=== PATIENT | female | born 1965 | race Caucasian/White ===

== ENCOUNTER → 2018-12-24 | Outpatient (CLI) | payer BC, SELFPAY ==
--- NOTE | 2018-12-24 15:55 | BI_ITS ---
MAMMOGRAPHY - BILATERAL SCREENING REASON FOR EXAM: Female, 53 years old. Routine annual screening examination. PERTINENT HISTORY: Grandmother with breast cancer. TECHNIQUE: Digital bilateral breast juan josé (3D mammographic acquisition) in the CC and MLO projections. 2-D mediolateral oblique (MLO) and craniocaudad (CC) views of both breasts were obtained. CAD: Full Field Digital Mammography with Computer Added Detection was performed. COMPARISON: Comparison is made with prior study of September 07, 2015 and March 27, 2013. FINDINGS: Breast Composition: The breasts are heterogeneously dense, which may obscure small masses. There are no dominant masses or suspicious calcifications. Stable appearance of the fat-containing right axillary lymph node. No other significant abnormalities are identified. There has been no significant change since the prior study. BI/SCREENING MAMM (CAD), BILAT IMPRESSION: Stable bilateral screening mammogram. Yearly follow-up mammogram recommended. (A) ASSESSMENT CATEGORY: BIRADS Category 2: Benign. A letter regarding these results will be sent to the patient by the facility within 30 days. Approximately 10% of breast cancers are not detected by mammography. A normal mammogram should not delay biopsy of a clinically suspicious abnormality. [id number] Electronically Signed: Sabas Rachel, at 9:14 EDT , Service support ,
== END | disposition home or self-care (01) ==
LOC: OPBI 15:52
PROVIDERS: Referring Provider Obstetrics & Gynecology; Visit Provider Obstetrics & Gynecology
DX: Z12.31 Encounter for screening mammogram for malignant neoplasm of breast (principal)
CPT/HCPCS: 77063; 77067

== ENCOUNTER → 2019-03-29 | Outpatient (CLI) | payer BC, SELFPAY ==
[2019-03-29 10:07] LABS: Absolute Neutrophil Count 2.7 X10^3/uL (2.0-7.7); Basophil# 0.03 X10^3/uL; Basophil% 0.7 % (0-1); Eosinophil# 0.08 X10^3/uL; Eosinophils% 1.8 % (0-5); Hematocrit 40.1 % (37-47); Lymphocyte % 27.3 % (19-41); Mean Corp Hgb Conc 32.4 g/dL (32-36); Mean Corpuscular Hgb 29.7 pg (27.0-32.0); Mean Corpuscular Volume 91.6 fL (81-99); Mean Platelet Vol. 11.6 fl (6.2-12.0); Monocyte% 9.1 % (0-10); NRBC Flagged by Analyzer 0 % (0-5); Neutrophil # 2.68 X10^3/uL (2.7-7.7); Neutrophil % 60.9 % (47-70); Platelet Count 160 K/mm3 (150-450); RBC Distribution Width CV 12.5 % (11.6-14.6); RBC Distribution Width SD 42.2 fl (35.1-43.9); Red Blood Count 4.38 M/mm3 (4.2-5.4); White Blood Count 4.4 K/mm3 (4.4-11.0)
[2019-03-29 10:36] LABS: ALB/GLOB Ratio 0.9 RATIO (0.9-2.4); AST(SGOT) 14 U/L (15-37); Alanine Aminotransfer ALT/SGPT 21 U/L (13-56); Albumin, Serum 3.5 g/dL (3.2-5.0); Alkaline Phosphatase 58 U/L (45-117); Anion Gap 5 (5-15); BUN 15 mg/dL (7-18); BUN/Creat Ratio 17.4 RATIO (10-20); Calcium,Total 8.7 mg/dL (8.5-10.1); Chloride 109 mmol/L (98-107); Cholesterol 219 mg/dL (200); Creatinine, Serum 0.86 mg/dL (0.55-1.02); EST Glomerular Filtration Rate 73 mL/min (>60); Est Glom Filt Rate - Afr Amer 88 mL/min (>60); Globulin 3.7 g/dL (2.2-4.2); Glucose 89 mg/dL (74-106); High Density Lipoprotein 51 mg/dL; Potassium 4.1 mmol/L (3.5-5.1); Protein, Total 7.2 g/dL (6.4-8.2); Sodium Level 144 mmol/L (136-145); Triglycerides 76 mg/dL; Very Low Density Lipoprotein 15 mg/dL (5-40)
== END | disposition home or self-care (01) ==
LOC: LAB 09:18
PROVIDERS: Family Provider Family Medicine; PCP Family Medicine; Referring Provider Family Medicine; Visit Provider Family Medicine
DX: Z00.00 Encounter for general adult medical examination without abnormal findings (principal)
CPT/HCPCS: 36415; 80053; 80061; 85025

== ENCOUNTER 2019-05-19 06:15 | Day surgery (SDC) | payer BC, SELFPAY ==
[2019-05-19] VITALS (7 sets, daily range): BP systolic 103–143; BP diastolic 63–71; PULSE 56–64; RESP 16; TEMP 36.6–36.9; O2SAT 98–100; BMI 24.7
[2019-05-19] MEDS: Lactated Ringers 1,000 ML 100 ML IV (07:00)
--- NOTE | 2019-05-19 07:10 | H&P.OPEN ---
History of Present Illness Date of Admission: 05/19/19 The patient is a 54 year old F for screening colonoscopy. She has never had a colonoscopy. Past Medical/Surgical History - Planned Operation Planned Operative Procedure/s: COLONOSCOPY Date of Operative Procedure: 05/19/19 Permit Signed: Yes S.O.S: No Is This Patient Having a Total Joint: No - Previous Hospitalizations/Surgeries HX Hospitalizations: No HX of Surgeries: X3. TUBAL Any Problems With Anesthesia: Yes - NAUSEA You/Your Family Experience Fever (Hyperthermia) With Anes: No Cholinesterase deficiency: No - Cardiovascular Hx Chest Pain within Last 2 months: No Hx of Irregular Heartbeat and/or Afib: No Hx Heart Attack: No Hx Congestive Heart Failure: No Hx Rheumatic Fever: No Hx Hypertension: No Hx Internal Defibrillator: No Hx Pacemaker: No Hx Cardiac Catheterization: No Hx Cardiac Surgery/Stents/Etc.: No Hx Stress Test: No HX Edema: No Hx Pain in Legs when Walking/Leg Cramps: No - Respiratory Chronic Cough: No HX of Shortness of Breath: No Hoarseness: No Hx Chronic Obstructive Pulmonary Disease (COPD): No Hx Asthma: No Hx Emphysema: No Hx Sleep Apnea: No Hx Oxygen Use at Home: No Hx Respiratory Tract Infection/Cold (presently): No Do You Snore Loudly (louder than talking or can be heard): No Do You Often Feel Tired/ Fatigued/ Sleepy Dring Daytime?: No Has Anyone Observed You Stop Breathing During Sleep?: No Result (for STOP score): Negative Hx Smoking: No Smoking Status: Never smoker - Gastrointestinal Hx Gastroesophageal Reflux: No Hx Gastrointestinal Disorders: No Hx Gastrointestinal Bleed: No Hx Ulcer: No Hx Hiatal Hernia: No Difficulty Chewing/Swallowing: No Recent Onset of Swallowing Problems: No Special diet followed at home: No Hx Unplanned Weight Loss of 20#: No HX Unplanned Weight Gain of 20#: No - Neurological Hx Seizures: No HX Syncope/Blackout Spells/Unconsciousness: No Hx CVA/Stroke: No Hx Transient Ischemic Attacks (TIA): No Hx Multiple Sclerosis: No Hx Parkinson's Disease: No Hx Head/Neck Injury: No Hx Headaches: No Hx Back Injury/Pain: No Recent Onset of Speech Difficulty: No Restless Legs: No Does patient have nerve stimulator: No - Blood Disorder Hx Leukemia: No Bleeding Tendencies: No Hx Deep Vein Thrombosis: No Hx High Cholesterol: No Blood Transmitted Disease: No Hx Hepatitis: No Hx Cirrhosis: No Hx Anemia: No Hx Blood Disorders: No - Reproduction : No Is Patient Lactating: No Hx Hysterectomy: No Hx Tubal Ligation: Yes Are You Post Menopause: No - Genitourinary Hx Renal Disease: No - Musculoskeletal Hx Arthritis: No Hx Rheumatoid Arthritis: No Hx Gout: No Recent Onset of an Orthopedic Problem: No - Endocrine Hx Diabetes: No Thyroid Disease: No Hx Steroid Therapy: No - Psycho/Social Hx Substance Use: No Hx Alcohol Use: No Hx Anxiety: No Hx Depression: No Mental Illness: No Hx Dementia: No - Miscellaneous Hx Cancer: No Recent Exposure to Contagious Disease: No Active MRSA: No Hx of C-Diff: No Any Loose Teeth: No Allergies No Known Allergies Allergy (Verified 05/14/19 11:34) - Discharge Is Pt Admitted From a Intermediate, or a Residential: No Who Could Help: After D/C, Where Do you Plan to Go: Return Home - Physical Exam General: Alert, Oriented x3 Lungs: Clear to auscultation Cardiovascular: Regular rate, Regular Rhythm, No murmurs Abdomen: Bowel Sounds Present, Soft, Non Tender, Non-Distended Vital Signs Temp Pulse Resp BP Pulse Ox 98.5 F 62 16 143/70 H 100 05/19/19 06:46 05/19/19 06:46 05/19/19 06:46 05/19/19 06:46 05/19/19 06:46 Oxygen Delivery Method Room Air Weight: 135 lb 2.294 oz Body Mass Index (BMI) 24.7 Assessment/Plan Plan will be to perform a colonoscopy. Surgery Risks - Colonoscopy Risks Include but are not Limited To: Risks include but are not limited to: Bleeding, perforation requiring further surgery, inability to complete colonoscopy requiring barium enema.
--- NOTE | 2019-05-19 07:40 | OP.ENDO_ITS ---
05/19/2019 Latoya Maldonado [place] [id number] [address] Re : Colonoscopy procedure for Lisa Hutson Dear Dr. Maldonado This procedure was performed on Sunday, May 19, 2019. My impressions and recommendations are as follows: Impressions : - Internal hemorrhoids. No specimens collected. - The examination was otherwise normal. Recommendations : - Discharge patient to home. - Resume previous diet. - Continue present medications. - Repeat colonoscopy in 10 years for screening purposes. - Return to primary care physician PRN. My findings are described in the full procedure note, which is enclosed. If I can be of further assistance, please feel free to contact me at Doctor phone number(s): , Fax: [phone], Work: . Sincerely, MD Andry Melendez MD 05/19/2019 7:40:15 AM This report has been signed electronically.
== END 2019-05-19 08:22 | disposition home or self-care (01) ==
LOC: EN 06:15 → AC 06:16
PROVIDERS: Family Provider Family Medicine; PCP Family Medicine; Referring Provider Family Medicine; Visit Provider Surgery
PROC: 0DJD8ZZ Inspection of Lower Intestinal Tract, Via Natural or Artificial Opening Endoscopic (ICD-10-PCS; CPT 45378; principal; 2019-05-19 07:10)
DX: Z12.11 Encounter for screening for malignant neoplasm of colon (principal); K64.8 Other hemorrhoids
CPT/HCPCS: 45378; J7120

== ENCOUNTER → 2020-05-06 | Outpatient (CLI) | payer BC, SELFPAY ==
[2019-05-19 06:46] VITALS: BMI 24.7
[2020-05-10 18:05] LABS: HPV APTIMA, High Risk Negative (Negative); HPV Reflexed? YES, CHARGE PATIENT
== END | disposition home or self-care (01) ==
PROVIDERS: PCP Family Medicine; Visit Provider Student in an Organized Health Care Education/Training Program
DX: Z12.4 Encounter for screening for malignant neoplasm of cervix (principal)
CPT/HCPCS: 87624; 88175; G0145

== ENCOUNTER → 2020-05-13 09:18 | Outpatient (CLI) | payer BC, SELFPAY ==
[2019-05-19 06:46] VITALS: BMI 24.7
--- NOTE | 2020-05-13 09:21 | US_ITS ---
STUDY: ULTRASOUND BREAST - RIGHT REASON FOR EXAM: Female, 55 years old. Pain in the right breast. TECHNIQUE: Axial and longitudinal images of the RIGHT breast were performed with a high resolution ultrasound transducer. # OF IMAGES: 56 COMPARISON: Comparison is made with prior mammogram dated 05/13/2020. FINDINGS: RIGHT Breast: The entire right breast was examined by ultrasound. There is homogeneous fibroglandular tissue. No sonographic abnormality is seen. US/Breast Limited Unilateral IMPRESSION: No sonographic abnormality is seen. ASSESSMENT CATEGORY: BIRADS Category 1: Negative. A letter regarding these results will be sent to the patient by the facility within 30 days. Electronically Signed: Sabas Rachel, at 14:07 EDT , Service support ,
--- NOTE | 2020-05-13 09:21 | BI_ITS ---
MAMMOGRAPHY - BILATERAL DIAGNOSTIC REASON FOR EXAM: Female, 55 years old. Right breast pain. PERTINENT HISTORY: Grandmother with breast cancer. TECHNIQUE: Digital bilateral breast juan josé (3D mammographic acquisition) in the CC and MLO projections. 2-D mediolateral oblique (MLO) and craniocaudad (CC) views of both breasts were obtained. CAD: Full Field Digital Mammography with Computer Added Detection was performed. COMPARISON: Comparison is made with prior examination dated 12/24/2018 and 09/16/2015. FINDINGS: Breast Composition: The breasts are heterogeneously dense, which may obscure small masses. There are no dominant masses or suspicious calcifications. Stable benign-appearing right axillary No other significant abnormalities are identified. There has been no significant change since the prior study. BI/DIAG MAMM W/CAD, BILAT IMPRESSION: Stable bilateral diagnostic mammogram. One year follow-up recommended. (A) ASSESSMENT CATEGORY: BIRADS Category 2: Benign. A letter regarding these results will be sent to the patient by the facility within 30 days. Approximately 10% of breast cancers are not detected by mammography. A normal mammogram should not delay biopsy of a clinically suspicious abnormality. Electronically Signed: Sabas Rachel, at 12:28 EDT , Service support ,
== END ==
PROVIDERS: PCP Family Medicine; Referring Provider Student in an Organized Health Care Education/Training Program; Visit Provider Student in an Organized Health Care Education/Training Program
CPT/HCPCS: 76642; 77062; 77066; G0279

== ENCOUNTER → 2021-04-09 09:09 | Outpatient (CLI) | payer OTHER, BC, SELFPAY ==
[2021-04-09 09:32] LABS: Absolute Lymphocyte Count 1.36 X10^3/uL (0.83-4.51); Absolute Neutrophil Count 2.9 X10^3/uL (2.0-7.7); Basophil# 0.03 X10^3/uL; Basophil% 0.6 % (0-1); Eosinophil# 0.09 X10^3/uL; Eosinophils% 1.9 % (0-5); Hematocrit 42.5 % (37-47); Hemoglobin 13.8 g/dL (12.0-15.0); Lymphocyte # 1.36 X10^3/ul (0.83-4.51); Lymphocyte % 28.3 % (19-41); Mean Corp Hgb Conc 32.5 g/dL (32-36); Mean Corpuscular Hgb 29.9 pg (27.0-32.0); Mean Corpuscular Volume 92.2 fL (81-99); Mean Platelet Vol. 11.4 fl (6.2-12.0); Monocyte# 0.44 X10^3/uL; Monocyte% 9.1 % (0-10); NRBC Flagged by Analyzer 0 % (0-5); Neutrophil # 2.88 X10^3/uL (2.7-7.7); Neutrophil % 59.9 % (47-70); Platelet Count 188 K/mm3 (150-450); RBC Distribution Width CV 12.1 % (11.6-14.6); RBC Distribution Width SD 40.9 fl (35.1-43.9); Red Blood Count 4.61 M/mm3 (4.2-5.4); White Blood Count 4.8 K/mm3 (4.4-11.0)
[2021-04-09 09:45] LABS: ALB/GLOB Ratio 0.9 RATIO (0.9-2.4); AST(SGOT) 19 U/L (15-37); Alanine Aminotransfer ALT/SGPT 29 U/L (13-56); Albumin, Serum 3.5 g/dL (3.2-5.0); Alkaline Phosphatase 59 U/L (45-117); Anion Gap 0 (5-15); BUN 16 mg/dL (7-18); BUN/Creat Ratio 16.9 RATIO (10-20); Calcium,Total 8.9 mg/dL (8.5-10.1); Chloride 109 mmol/L (98-107); Cholesterol 257 mg/dL (200); Creatinine, Serum 0.95 mg/dL (0.55-1.02); EST Glomerular Filtration Rate 65 mL/min (>60); Est Glom Filt Rate - Afr Amer 78 mL/min (>60); Glucose 101 mg/dL (74-106); High Density Lipoprotein 53 mg/dL; Potassium 4.1 mmol/L (3.5-5.1); Protein, Total 7.5 g/dL (6.4-8.2); Sodium Level 141 mmol/L (136-145); Triglycerides 96 mg/dL; Very Low Density Lipoprotein 19 mg/dL (5-40)
== END ==
PROVIDERS: PCP Family Medicine; Referring Provider Family Medicine; Visit Provider Family Medicine
DX: Z00.00 Encounter for general adult medical examination without abnormal findings (principal); Z78.0 Asymptomatic menopausal state
CPT/HCPCS: 36415; 80053; 80061; 85025

== ENCOUNTER → 2021-05-16 16:07 | Outpatient (CLI) | payer OTHER, BC, SELFPAY ==
--- NOTE | 2021-05-16 16:10 | BI_ITS ---
MAMMOGRAPHY - BILATERAL SCREENING REASON FOR EXAM: Female, 56 years old. Routine annual screening examination. PERTINENT HISTORY: Grandmother with breast cancer. TECHNIQUE: Digital bilateral breast pedro luis (3D mammographic acquisition) in the CC and MLO projections. 2-D mediolateral oblique (MLO) and craniocaudad (CC) views of both breasts were obtained. CAD: Full Field Digital Mammography with Computer Added Detection was performed. COMPARISON: Comparison is made with prior examination dated 05/13/2020 and 12/24/2018. FINDINGS: Breast Composition: The breasts are heterogeneously dense, which may obscure small masses. There are no dominant masses or suspicious calcifications. Stable benign-appearing bilateral axillary lymph nodes. No other significant abnormalities are identified. There has been no significant change since the prior study. BI/SCRN MAMM (CAD)W/PEDRO LUIS BILAT IMPRESSION: Stable bilateral screening mammogram. Yearly follow-up mammogram recommended. (A) ASSESSMENT CATEGORY: BIRADS Category 2: Benign. A letter regarding these results will be sent to the patient by the facility within 30 days. Approximately 10% of breast cancers are not detected by mammography. A normal mammogram should not delay biopsy of a clinically suspicious abnormality. [id number] Electronically Signed: Sabas Rachel MD at 8:35 EDT , Service support ,
== END ==
PROVIDERS: PCP Family Medicine; Referring Provider Student in an Organized Health Care Education/Training Program; Visit Provider Student in an Organized Health Care Education/Training Program
DX: Z12.31 Encounter for screening mammogram for malignant neoplasm of breast (principal)
CPT/HCPCS: 77063; 77067

== ENCOUNTER → 2022-09-06 | Outpatient (CLI) | payer BC, SELFPAY ==
--- NOTE | 2022-09-06 15:54 | BI_ITS ---
MAMMOGRAPHY - BILATERAL SCREENING REASON FOR EXAM: Female, 57 years old. Routine annual screening examination. PERTINENT HISTORY: Grandmother with breast cancer. TECHNIQUE: Digital bilateral breast pedro luis (3D mammographic acquisition) in the CC and MLO projections. 2-D mediolateral oblique (MLO) and craniocaudad (CC) views of both breasts were obtained. CAD: Full Field Digital Mammography with Computer Added Detection was performed. COMPARISON: Comparison is made with prior study 05/16/2021 and 05/13/2020. FINDINGS: Breast Composition: The breasts are heterogeneously dense, which may obscure small masses. There are no dominant masses or suspicious calcifications. Stable benign-appearing bilateral axillary lymph nodes. No other significant abnormalities are identified. There has been no significant change since the prior study. BI/SCRN MAMM (CAD)W/PEDRO LUIS BILAT IMPRESSION: Stable bilateral screening mammogram. Yearly follow-up mammogram recommended. (A) ASSESSMENT CATEGORY: BIRADS Category 2: Benign. A letter regarding these results will be sent to the patient by the facility within 30 days. Approximately 10% of breast cancers are not detected by mammography. A normal mammogram should not delay biopsy of a clinically suspicious abnormality. [id number] Electronically Signed: Sabas Rachel MD at 8:00 EST ,
== END | disposition home or self-care (01) ==
PROVIDERS: PCP Family Medicine; Referring Provider Student in an Organized Health Care Education/Training Program; Visit Provider Student in an Organized Health Care Education/Training Program
DX: Z12.31 Encounter for screening mammogram for malignant neoplasm of breast (principal); Z80.3 Family history of malignant neoplasm of breast
CPT/HCPCS: 77063; 77067

== ENCOUNTER → 2022-12-20 | Outpatient (CLI) | payer BC, SELFPAY | END | disposition home or self-care (01) | LOC: WOBLAB 12:22 | PROVIDERS: PCP Family Medicine; Visit Provider Student in an Organized Health Care Education/Training Program | DX: N93.9 Abnormal uterine and vaginal bleeding, unspecified (principal) | CPT/HCPCS: 87086 ==

== ENCOUNTER → 2023-10-11 | Outpatient (CLI) | payer BC, SELFPAY ==
--- NOTE | 2023-10-11 15:44 | BI_ITS ---
MAMMOGRAPHY - BILATERAL SCREENING REASON FOR EXAM: Female, 58 years old. Routine annual screening examination. PERTINENT HISTORY: Grandmother with breast cancer. TECHNIQUE: Digital bilateral breast pedro luis (3D mammographic acquisition) in the CC and MLO projections. 2-D mediolateral oblique (MLO) and craniocaudad (CC) views of both breasts were obtained. CAD: Full Field Digital Mammography with Computer Added Detection was performed. COMPARISON: Comparison is made with prior study dated June 06, 2023 and May 16, 2021. FINDINGS: Breast Composition: The breasts are heterogeneously dense, which may obscure small masses. There are no dominant masses or suspicious calcifications. Stable bilateral fat containing axillary lymph nodes. No other significant abnormalities are identified. There has been no significant change since the prior study. BI/SCRN MAMM (CAD)W/PEDRO LUIS BILAT IMPRESSION: Stable bilateral screening mammogram. Yearly follow-up mammogram recommended. (A) ASSESSMENT CATEGORY: BIRADS Category 2: Benign. A letter regarding these results will be sent to the patient by the facility within 30 days. Approximately 10% of breast cancers are not detected by mammography. A normal mammogram should not delay biopsy of a clinically suspicious abnormality. [id number] Electronically Signed: Sabas Rachel MD at 8:38 EDT ,
--- OUTSIDE RECORDS SUMMARY | 2023-10-11 22:08 | XMS RPT_ITS | CCD ---
Author Name Unknown Address [address] [place] [address] Organization [facility] Care Team Providers Care Software Development Manager Name Role Phone Latoya Maldonado MD Primary Care Provider LATOYA MALDONADO Primary Care Unavailable LISE AVILA Attending Unavailable LATOYA MALDONADO Primary Care Unavailable LATOYA MALDONADO Primary Care Unavailable LATOYA MALDONADO Primary Care Unavailable LATOYA MALDONADO Primary Care Unavailable MARIA T ABREU Attending Unavailable LISE AVILA Referring Unavailable LATOYA MALDONADO Primary Care Unavailable LISE AVILA Attending Unavailable LATOYA MALDONADO Primary Care Unavailable LISE AVILA Referring Unavailable LATOAY MALDONADO Primary Care Unavailable LISE AVILA Referring Unavailable Medications Current Medications Medication Drug Class(es) Dates Sig (Normalized) Sig (Original) amoxicillin 875 mg oral tablet (1 source) Penicillin-class Antibacterial Start: 03-06-2023 End: 03-13-2023 take 1 tablet by mouth twice daily amoxicillin (AMOXIL) 875 mg tablet Take 1 tablet by mouth twice daily for 7 days. 14 tablet 0 03/06/2023 03/13/2023 Active Completed/Discontinued Medications Medication Drug Class(es) Dates Sig (Normalized) Sig (Original) baclofen suppository 10 mg (CPD) (2 sources) Start: 10-02-2023 baclofen suppository 10 mg (CPD) Indications: Vulvodynia , High-tone pelvic floor dysfunction Unwrap and insert 1 Suppository vaginally daily at bedtime as directed. 30 Suppository 3 10/02/2023 Active Problems Active Problems Problem Classification Problem Date Documented Date Episodic/Chronic Abdominal pain (4 sources) Pain in female pelvis; Translations: [Pelvic and perineal pain] Onset: 07-12-2023 07-05-2023 Episodic Endometriosis (1 source) Uterine adenomyosis; Translations: [Adenomyosis] 10-02-2023 Chronic Genitourinary symptoms and ill-defined conditions (1 source) Scalding pain on urination ; Translations: [Dysuria] Episodic Immunizations and screening for infectious disease (2 sources) Patient encounter status; Translations: [Encounter for screening for human papillomavirus (HPV)] 09-03-2023 Episodic Menopausal disorders (1 source) Atrophy of vagina; Translations: [Postmenopausal atrophic vaginitis] 07-05-2023 Chronic Other female genital disorders (1 source) Dyspareunia; Translations: [Other specified dyspareunia] 07-05-2023 Chronic Other female genital disorders (1 source) Vulvodynia; Translations: [Vulvodynia, unspecified] 10-02-2023 Chronic Other female genital disorders (1 source) Superficial pain on intercourse; Translations: [Superficial (introital) dyspareunia] 10-02-2023 Chronic Other female genital disorders (1 source) Deep pain on intercourse; Translations: [Deep dyspareunia] 10-02-2023 Chronic Other female genital disorders (1 source) Other specified dyspareunia; Translations: [Other specified dyspareunia] Onset: 07-12-2023 Chronic Other female genital disorders (1 source) Pelvic floor dysfunction; Translations: [Other specified conditions associated with female genital organs and menstrual cycle] 10-02-2023 Episodic Other lower respiratory disease (1 source) Cough; Translations: [Acute cough] 03-06-2023 Episodic Other nervous system disorders (1 source) Other chronic pain; Translations: [Chronic pelvic pain in female] Onset: 10-02-2023 Chronic Other screening for suspected conditions (not mental disorders or infectious disease) (1 source) Cancer cervix screening status; Translations: [Encounter for screening for malignant neoplasm of cervix] 09-03-2023 Episodic Other upper respiratory disease (1 source) Chronic rhinitis; Translations: [Unspecified sinusitis (chronic)] 03-23-2023 Chronic Otitis media and related conditions (1 source) Otitis media; Translations: [Unspecified nonsuppurative otitis media, left ear] 03-06-2023 Episodic Past or Other Problems Problem Classification Problem Date Documented Da te Episodic/Chronic Allergic reactions (10 sources) Radiation-induced dermatosis; Translations: [Other skin changes due to chronic exposure to nonionizing radiation] Onset: 08-16-2006 08-16-2006 Episodic Other and unspecified benign neoplasm (10 sources) Benign neoplasm of skin; Translations: [Benign neoplasm of skin] Onset: 08-16-2006 08-16-2006 Episodic Other injuries and conditions due to external causes (10 sources) Open wound; Translations: [Other injury of unspecified body region, initial encounter] Onset: 05-24-2005 05-24-2005 Episodic Other non-epithelial cancer of skin (20 sources) Malignant neoplasm of skin; Translations: [Other and unspecified malignant neoplasm of skin, site unspecified] Onset: 05-16-2006 05-16-2006 Episodic Other skin disorders (10 sources) Scar conditions and fibrosis of skin; Translations: [Scar conditions and fibrosis of skin] Onset: 08-16-2006 08-16-2006 Episodic Results Test Name Value Interpretation Reference Range Facil ity Vital Signs Date Time Vital Sign Value Performing Clinician Faci lity 10-02-2023 10:59-0500 Body height 157.5 cm Maria T Abreu MD Work Phone: [facility] 10-02-2023 10:59-0500 Body weight 65.5 kg Maria T Abreu MD Work Phone: [facility] 10-02-2023 10:59-0500 Diastolic blood pressure 78 mm[Hg] Maria T Abreu MD Work Phone: [facility] 10-02-2023 10:59-0500 Systolic blood pressure 142 mm[Hg] Maria T Abreu MD Work Phone: [facility] 09-03-2023 16:01-0500 Body weight 65.05 kg Lise Avila APRN.SPORTS ADMINISTRATOR Work Phone: [facility] 09-03-2023 16:01-0500 Diastolic blood pressure 78 mm[Hg] Lise Avila APRN.SPORTS ADMINISTRATOR Work Phone: [facility] 09-03-2023 16:01-0500 Systolic blood pressure 138 mm[Hg] Lise Avila APRN.SPORTS ADMINISTRATOR Work Phone: [facility] 07-05-2023 11:13-0500 Body height 157.5 cm Lise Barriosbrooke WHITEN.SPORTS ADMINISTRATOR Work Phone: [facility] 07-05-2023 11:13-0500 Body weight 63.96 kg Lise Barriosbrooke VOLLEYBALL ASSISTANT COACH.SPORTS ADMINISTRATOR Work Phone: [facility] 07-05-2023 11:13-0500 Diastolic blood pressure 70 mm[Hg] Lisedora Barriosbrooke VOLLEYBALL ASSISTANT COACH.SPORTS ADMINISTRATOR Work Phone: [facility] 07-05-2023 11:13-0500 Systolic blood pressure 168 mm[Hg] Lise Barriosbrooke VOLLEYBALL ASSISTANT COACH.SPORTS ADMINISTRATOR Work Phone: [facility] 03-23-2023 15:44-0400 Body temperature 98.29 [degF] Nelda Allison APRN.SPORTS ADMINISTRATOR Work Phone: [facility] 03-23-2023 15:44-0400 Body weight 65.59 kg Nelda Allison APRN.SPORTS ADMINISTRATOR Work Phone: [facility] 03-23-2023 15:44-0400 Diastolic blood pressure 80 mm[Hg] Nelda Allison APRN.SPORTS ADMINISTRATOR Work Phone: [facility] 03-23-2023 15:44-0400 Heart rate 68 /min Nelda Allison APRN.SPORTS ADMINISTRATOR Work Phone: [facility] 03-23-2023 15:44-0400 Respiratory rate 16 /min Nelda Allison APRN.SPORTS ADMINISTRATOR Work Phone: [facility] 03-23-2023 15:44-0400 SaO2% (BldA) [Mass fraction] 98 % Nelda Allison APRN.SPORTS ADMINISTRATOR Work Phone: [facility] 03-23-2023 15:44-0400 Systolic blood pressure 142 mm[Hg] Nelda Allison APRN.SPORTS ADMINISTRATOR Work Phone: [facility] 03-06-2023 15:50-0400 Body temperature 98.71 [degF] Krupa Praisler-Wood VOLLEYBALL ASSISTANT COACH.SPORTS ADMINISTRATOR Work Phone: [facility] 03-06-2023 15:50-0400 Body weight 65.32 kg Krupa Praisler-Wood VOLLEYBALL ASSISTANT COACH.SPORTS ADMINISTRATOR Work Phone: [facility] 03-06-2023 15:50-0400 Diastolic blood pressure 80 mm[Hg] Krupa Praisler-Wood VOLLEYBALL ASSISTANT COACH.SPORTS ADMINISTRATOR Work Phone: [facility] 03-06-2023 15:50-0400 Heart rate 72 /min Krupa Praisler-Wood VOLLEYBALL ASSISTANT COACH.SPORTS ADMINISTRATOR Work Phone: [facility] 03-06-2023 15:50-0400 Respiratory rate 16 /min Krupa Praisler-Wood VOLLEYBALL ASSISTANT COACH.SPORTS ADMINISTRATOR Work Phone: [facility] 03-06-2023 15:50-0400 SaO2% (BldA) [Mass fraction] 97 % Krupa Praisler-Wood VOLLEYBALL ASSISTANT COACH.SPORTS ADMINISTRATOR Work Phone: [facility] 03-06-2023 15:50-0400 Systolic blood pressure 148 mm[Hg] Krupa Praisler-Wood VOLLEYBALL ASSISTANT COACH.SPORTS ADMINISTRATOR Work Phone: [facility] 12-09-2022 10:19-0400 Body temperature 98.71 [degF] Nelda Allison VOLLEYBALL ASSISTANT COACH.SPORTS ADMINISTRATOR Work Phone: [facility] 12-09-2022 10:19-0400 Body weight 64.41 kg Nelda Allison VOLLEYBALL ASSISTANT COACH.SPORTS ADMINISTRATOR Work Phone: [facility] 12-09-2022 10:19-0400 Diastolic blood pressure 80 mm[Hg] Nelda Allison VOLLEYBALL ASSISTANT COACH.SPORTS ADMINISTRATOR Work Phone: [facility] 12-09-2022 10:19-0400 Heart rate 85 /min Nelda Allison VOLLEYBALL ASSISTANT COACH.SPORTS ADMINISTRATOR Work Phone: [facility] 12-09-2022 10:19-0400 Respiratory rate 16 /min Nelda Allison VOLLEYBALL ASSISTANT COACH.SPORTS ADMINISTRATOR Work Phone: [facility] 12-09-2022 10:19-0400 SaO2% (BldA) [Mass fraction] 98 % Nelda Allison APRN.CNP Work Phone: [facility] 12-09-2022 10:19-0400 Systolic blood pressure 142 mm[Hg] Nelda Allison APRN.CNP Work Phone: [facility] Encounters Encounter Date Encounter Type Care Provider Facility Start: 10-09-2023 ambulatory Lise PLASCENCIA RN.SPORTS ADMINISTRATOR Work Phone: OB/Gynecology Procedures Date Procedure Procedure Detail Performing Clinician Start: 12-09-2022 Urnls dip stick/tabl et rgnt auto w/o microscopy Nelda Allison APRN.CNP Work Phone: Start: 10-09-2005 Lipid 1996 panel - S luis or Plasma Lise Avila APRN.CNP Work Phone: Plan of Treatment Date Care Activity Detail Author Start: 09-03-2028 Screening for malignant neoplasm of cervix [facility] Start: 09-06-2023 Mammography Mammogram Screening [facility] Start: 09-06-2023 Screening for malignant neoplasm of breast Mammogram Screening [facility] Start: 07-30-2023 Depression Assessment Depression Assessment [facility] Start: 03-30-2023 Covid-19 Vaccine ( season) Covid-19 Vaccine ( season) [facility] Start: 03-30-2023 Influenza vaccination [facility] Start: 12-09-2022 End: 02-08-2023 Bacteria identified in Urine by Culture URINE CULTURE Microbiology Routine Burning with urination Expected: 12/09/2022, Expires: 02/08/2023 [facility] Work Phone: Immunizations Immunization Date Immunization Notes Care Provider Adi horner 05-24-2013 influenza virus vaccine, live, attenuated, for intranasal use Nelda Allison APRN.SPORTS ADMINISTRATOR Work Phone: [facility] Work Phone: 05-24-2013 influenza virus vaccine, unspecified formulation Lise Avila APRN.CNP Work Phone: [facility] 05-20-2011 influenza virus vaccine, live, attenuated, for intranasal use Nelda Allison VOLLEYBALL ASSISTANT COACH.SPORTS ADMINISTRATOR Work Phone: [facility] Work Phone: 05-14-2010 influenza virus vaccine, live, attenuated, for intranasal use Nelda James VOLLEYBALL ASSISTANT COACH.SPORTS ADMINISTRATOR Work Phone: [facility] 05-01-2009 influenza virus vaccine, live, attenuated, for intranasal use Nelda Keegan VOLLEYBALL ASSISTANT COACH.SPORTS ADMINISTRATOR Work Phone: [facility] 06-06-2008 influenza virus vaccine, unspecified formulation Nelda Keegan VOLLEYBALL ASSISTANT COACH.SPORTS ADMINISTRATOR Work Phone: [facility] Work Phone: 06-04-2007 influenza virus vaccine, unspecified formulation Nelda James VOLLEYBALL ASSISTANT COACH.[facility] Work Phone: [facility] 05-30-2006 influenza virus vaccine, unspecified formulation Nelda Keegan VOLLEYBALL ASSISTANT COACH.[facility] Work Phone: [facility] Work Phone: Payers Date Payer Category Payer Unknown [id number] 2015 Unknown [id number] 2015 Unknown [id number] Social History Date Type Detail Facility Start: 05-10-2022 Tobacco smoking stat [facility] Never smoked tobacco [facility] Work Phone: Start: 05-10-2022 Tobacco use and exposure Smokeless tobacco non-user [facility] Work Phone: Start: 12-09-2022 End: 10-02-2023 Alcohol intake Current non-drinker of alcohol (finding) [facility] Start: 1965 Sex Assigned At Not on file [facility] Start: 03-06-2023 End: 07-05-2023 History of Social function [facility] Start: 03-06-2023 End: 07-05-2023 Tobacco use panel [facility] National Score (1-100), lower number is lower risk Not on file [facility] Start: 1965 Sex Assigned At Female C [facility] Start: 07-09-2023 Gender identity Identifies as female gender (finding) [facility] Clinical Notes 12-09-2022 to 10-10-2023 Telephone Encounter - Shilpi Gray RN - 10/10/2023 10:21 AM EDTPatient Maria T Oakes MD - 10/02/2023 11:00 AM ESTTelephone Encounter - Maira Mercado - 09/03/2023 4:40 PM EST Note Date & Type Note Facility 10-10-2023 Miscellaneous Notes Images from the original note were not included. 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 She will be at [place]. Tala White does pelvic floor therapy at [place]. I think there also might be someone at [facility] through [facility]. Lise Avila APRN.SPORTS ADMINISTRATOR documented in this encounter [facility] 10-02-2023 Note HNO ID: [id number] Author: MARIA T ABREU MD Service: ? Author Type: Physician Type: Progress Notes Filed: 10/04/2023 12:32 Note Text: [facility] SECTION FOR CHRONIC PELVIC PAIN OUTPATIENT VISIT DATE 10/02/2023 OUTPATIENT VISIT TYPE CONSULT REFERRING PROVIDER: Lise Avila APRN.CNP PRIMARY CARE PROVIDER: Latoya Maldonado MD Consultation requested by referring provider above for an opinion regarding Lisa Hutson, and my final recommendations will be communicated back to the requesting physician by way of shared medical record or letter via US mail. CHIEF COMPLAINT/REASON FOR CONSULTATION Lisa Hutson is a 58 year old who seeks a chronic pelvic pain evaluation Last Office Visit with Lise Avila APRN.CNP on 09/03/2023 ASSESSMENT AND PLAN: 1. Chronic pelvic pain in female - ICD9: 625.9, 338.29, ICD10: R10.2, G89.29 (primary diagnosis) - No relief with vaginal estrogen cream - Recommend chronic pelvic pain clinic - Consider pelvic floor therapy - Patient agreeable to chronic pelvic pain clinic - CONSULT TO [facility] PELVIC PAIN RTO for annual. HISTORY OF PRESENT ILLNESS Lisa is a 58 year old who presents for evaluation of chronic pelvic pain and is accompanied by self. Pain started 1 year ago. Two internal ultrasounds done within 1 year of each other. Adenomyosis was found the second ultrasound. 6/10 burning sensation and discomfort on a daily bases. Pain during intercourse with insertion and deep penetration. No bleeding. Patient is about 1 year post-menopausal when her symptoms appeared. During the transition period she had hot flashes and changing period. She no longer bleeds but does have hot flashes about once a day and aren't too bad. She doesn't sleep well. Patient says that symptoms are worse with intercourse. Afterwards she has a burning sensation for two weeks. She didn't have these symptoms prior to a year ago. She does not have bladder or bowel issues. When she sits, wipes, or urinating it triggers her symptoms. Ultrasounds also are uncomfortable for her. Patient said that in the past she had normal periods. Patient uses Estrace cream to help with dryness. 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 Post menopausal Last pap: Pap Results: WNL/neg HPV History of abnormal pap: No [place]: ([place] intake) Dyspareunia: insertion Sex was not painful prior to onset of this pain. Post-coital soreness is present and lasts 2-3 weeks afterwards. Soreness begins seconds afterwards. denies pain with external touch. Orgasm does not increase pain. OB Hx: (page 4) Number of pregnancies: 3 Number of deliveries: 3 Number of C/S: 3 Complications with delivery: N/A Pain characteristics: (page 5) Pain started (month/year): September 2022 Inciting event: No obvious cause/do not know Onset: Gradual Duration of pain: 3-12 months Character of pain: Burning Wakes from sleep: No Radiation of pain: No Aggravating factors: Urination and [place]/Sexual contact Alleviating factors: Nothing makes it better Bowel habits: (page 12-13) Nausea/vomiting: denies Diarrhea: denies Abdominal pain: denies Bloating: endorses Constipation: denies Increased pain with bowel movements: denies Blood in stool: denies Pain with change in frequency of stool: denies Pain with change in appearance of stool: denies Pain changes with bowel movements: denies. Newton scale: Type 5 Pudendal symptoms: (page 13) Pain located in clitoris, vulva/labia, or anus? denies Numbness in same area: denies Worsened with sitting: denies Pain wakes from sleep: denies History of pudendal nerve block: denies If yes, improvement: History of severe sports injury: denies History of motor vehicle accident: denies History of fall injuries: denies Urinary habits: (page 14) Voids 11-14 times per day and 3 times at night. PUF: 21 (>19 suggests IC) Stress incontinence: denies Urinary hesitancy/difficulty passing urine: denies Frequent bladder infections: denies Blood in urine: denies Incomplete emptying: denies Postvoid urgency: denies Urinary urgency: denies History of abuse: (page 16) As a child <13: None As an adult: None Current abuse: None Pain Scales PCS (page 8): 31 Mild=30-39 PDI (page 16): 8 /70 (Higher values equal higher disability) PHQ-9 (page 17): 2 (Greater than 14 warrants treatment for depression) DARREN 7 (page 17): 6 (Greater than 8 indicates probable anxiety disorder) [employer] ([place] intake) 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 Pain has forced a change in type of work. See scanned intake/data flow sheet for complete intake data. PRIOR TREATMENTS: Erase those which they have not tried on page 12, can leave deta (more content not included)... [facility] 10-02-2023 Instructions Maria T Abreu MD - 10/02/2023 11:23 AM EST Baclofen vaginal suppository sent to [facility] who will contact you See pelvic floor PHYSICAL THERAPY [phone] to schedule Use the estrogen cream Fu november 2023 virtual PATIENT INFORMATION ON PELVIC FLOOR DYSFUNCTION: Myofascial pain( also known as Pelvic floor dysfunction, high tone pelvic floor,pelvic floor tightness) : Based on the patient s physical exam and history, it is evident that there is a significant component of myofascial pain that is contributing to her symptoms. Myofascial pain is pain that arises from dysfunction, spasticity, and/or hypersensitivity of the muscle, fascia or joints in the abdominal wall, pelvic floor, and/or low back. This is an extremely common, but under-recognized source of pain in women with chronic pelvic pain. We discussed that the most effective treatment modality is usually physical therapy, and that it is extremely important that the patient be seen and evaluated by a physical therapist with specialty training in female pelvic pain. We have ordered a consult to a pelvic floor physical therapist. We counseled her that her pelvic pain may initially worsen during and after the first several visits, and that it may take time and repetitive visits before she notices an improvement. Unfortunately, there are few alternative treatments for this type of pain, and repetitive surgery can often make myofascial pain worse. Therefore, we strongly encouraged her to complete an entire course of physical therapy. If this treatment is not helpful, we are happy to discuss adjuvant therapies such as trigger point injections or muscle relaxers. SUGGESTED BEGINNER YOGA POSES: HAPPY BABY AND BRIDGE POSE Do reverse kegels , avoid kegel exercises until seen by physical therapist. Instagram: [email or web address] Thepelvicdancefloor Shikha Bonds, pelvic floor PHYSICAL THERAPY Resources: Makeda Brandon P.T[employer] Heal Pelvic Pain (website and book and has DVDs that can be ordered) Www.pelvicpain.org (International pelvic pain society) FOR learning to cope with pain (the modules are free, lasting 1 min each) :www.retrainpain.org TIRED OF WAITING FOR PAIN TO GO AWAY? Learn a science based approach to overcome chronic pain. Contact information: My chart messages will go to the RN or affirmative action officer first to be addressed. If questions are urgent, please call [phone] and press nurse prompt. For urgent Questions: call my medical secretary with questions, appts related to chronic pelvic pain, Zeny Khan ,fax [phone] For refills, I prefer these be sent through [employer] We also have a nurse coordinatorAna Keys RN My schedule: I see patients in office Sunday/Sunday/ and Fridays: virtual visits only .Vulvodynia: We discussed is chronic vulvar pain without an identifiable cause. The location, constancy and severity of the pain vary among sufferers. Some women experience pain in only one area of the vulva, while others experience pain in multiple areas. Vulvodynia is not caused by an active infection or a sexually transmitted disease. Through continued research efforts, we move closer to discovering the underlying cause(s) of vulvodynia. Research suggests that one or more of the following may cause, or contribute to, vulvodynia: (1) An injury to, or irritation of, the nerves that transmit pain from the vulva to the spinal cord; (2) An increase in the number and sensitivity of pain-sensing nerve fibers in the vulva; (3) Elevated levels of inflammatory substances in the vulva; (4) An abnormal response of different types of vulvar cells to environmental factors such as infection or trauma (5) Genetic susceptibility to chronic vestibular inflammation, chronic widespread pain and/or inability to combat infection; (6) Pelvic floor muscle weakness, spasm or instability. Scientific literature also confirms that this condition shares features of central pain amplification, like many other chronic pain conditions like vulvodynia. Typical treatments for vestibulodynia were reviewed with the patient, and include topical therapies, oral medications, and occasionally surgery if all other therapies fail. Topical therapies and physical therapy are generally considered first line treatments, since side-effects are minimal. documented in this encounter [facility] 03-05-2024 History of Present illness Narrative Images from the original note were not included. [facility] SECTION FOR CHRONIC PELVIC PAIN OUTPATIENT VISIT DATE 10/02/2023 OUTPATIENT VISIT TYPE CONSULT REFERRING PROVIDER: Lise Avila APRN.CNP PRIMARY CARE PROVIDER: Latoya Maldonado MD Consultation requested by referring provider above for an opinion regarding Lisa Hutson, and my final recommendations will be communicated back to the requesting physician by way of shared medical record or letter via US mail. CHIEF COMPLAINT/REASON FOR CONSULTATION Lisa Hutson is a 58 year old who seeks a chronic pelvic pain evaluation Last Office Visit with Lise Avila APRN.CNP on 09/03/2023 ASSESSMENT AND PLAN: 1. Chronic pelvic pain in female - ICD9: 625.9, 338.29, ICD10: R10.2, G89.29 (primary diagnosis) - No relief with vaginal estrogen cream - Recommend chronic pelvic pain clinic - Consider pelvic floor therapy - Patient agreeable to chronic pelvic pain clinic - CONSULT TO [facility] P[facility] RTO for annual. HISTORY OF PRESENT ILLNESS Lisa is a 58 year old who presents for evaluation of chronic pelvic pain and is accompanied by self. Pain started 1 year ago. Two internal ultrasounds done within 1 year of each other. Adenomyosis was found the second ultrasound. 6/10 burning sensation and discomfort on a daily bases. Pain during intercourse with insertion and deep penetration. No bleeding. Patient is about 1 year post-menopausal when her symptoms appeared. During the transition period she had hot flashes and changing period. She no longer bleeds but does have hot flashes about once a day and aren't too bad. She doesn't sleep well. Patient says that symptoms are worse with intercourse. Afterwards she has a burning sensation for two weeks. She didn't have these symptoms prior to a year ago. She does not have bladder or bowel issues. When she sits, wipes, or urinating it triggers her symptoms. Ultrasounds also are uncomfortable for her. Patient said that in the past she had normal periods. Patient uses Estrace cream to help with dryness. 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 Post menopausal Last pap: Pap Results: WNL/neg HPV History of abnormal pap: No [place]: ([place] intake) Dyspareunia: insertion Sex was not painful prior to onset of this pain. Post-coital soreness is present and lasts 2-3 weeks afterwards. Soreness begins seconds afterwards. denies pain with external touch. Orgasm does not increase pain. OB Hx: (page 4) Number of pregnancies: 3 Number of deliveries: 3 Number of C/S: 3 Complications with delivery: N/A Pain characteristics: (page 5) Pain started (month/year): September 2022 Inciting event: No obvious cause/do not know Onset: Gradual Duration of pain: 3-12 months Character of pain: Burning Wakes from sleep: No Radiation of pain: No Aggravating factors: Urination and [place]/Sexual contact Alleviating factors: Nothing makes it better Bowel habits: (page 12-13) Nausea/vomiting: denies Diarrhea: denies Abdominal pain: denies Bloating: endorses Constipation: denies Increased pain with bowel movements: denies Blood in stool: denies Pain with change in frequency of stool: denies Pain with change in appearance of stool: denies Pain changes with bowel movements: denies. Newton scale: Type 5 Pudendal symptoms: (page 13) Pain located in clitoris, vulva/labia, or anus? denies Numbness in same area: denies Worsened with sitting: denies Pain wakes from sleep: denies History of pudendal nerve block: denies If yes, improvement: History of severe sports injury: denies History of motor vehicle accident: denies History of fall injuries: denies Urinary habits: (page 14) Voids 11-14 times per day and 3 times at night. PUF: 21 (>19 suggests IC) Stress incontinence: denies Urinary hesitancy/difficulty passing urine: denies Frequent bladder infections: denies Blood in urine: denies Incomplete emptying: denies Postvoid urgency: denies Urinary urgency: denies History of abuse: (page 16) As a child <13: None As an adult: None Current abuse: None Pain Scales PCS (page 8): 31 Mild=30-39 PDI (page 16): 8 /70 (Higher values equal higher disability) PHQ-9 (page 17): 2 (Greater than 14 warrants treatment for depression) DARREN 7 (page 17): 6 (Greater than 8 indicates probable anxiety disorder) [employer] ([place] intake) 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 Pain has forced a change in type of work. See scanned intake/data flow sheet for complete intake data. 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 baclofen suppository 10 mg (CPD) Use 1 Suppository vaginally daily at bedtime. Unwrap and insert as directed. No current facility-administered medications for this visit. Allergies As of Date: 10/02/2023 (No Known Allergies) Fully Assessed 10/02/2023 PHYSICAL EXAMINATION BP 142/78 Ht 157.5 cm (5' 2 ) Wt 65.5 kg (144 lb 6.4 oz) LMP 05/30/2022 (Approximate) BMI 26.41 kg/m General: The patient is a well-appearing female in no acute distress. Abdomen: Soft, non-distended. No masses or hepatosplenomegaly noted. non-tender Hernias: absent Pelvic: Vulva: non-tender Normal external genitalia and hair distribution. Normal bartholin, urethra, skene's glands. No lesions. Some clitoral tenderness. Cystic structure at 6 o'clock, 4 x 4 mm, posterior, soft. Vestibule: no lesions, diffusely tender Speculum exam: Deferred Bimanual exam: Urethra: non-tender without masses. Bladder: non-tender Cervix: non-tender Uterus: Regular contour and non-tender Vaginal fornices: non-tender Adnexa: no masses, nontender Uterosacral ligaments: non-tender. Nodularity is absent Rectovaginal septum: non-tender Rectum: Deferred as not indicated by patient symptoms. Physical Exam Pelvic Musculoskeletal: Vaginismus: absent Pubic symphysis: non-tender Ischial tuberosities: non-tender RIGHT LEFT Superficial perineal Tone: Normal Pain: normal Tone: Normal Pain: normal Levator ani Tone: Increased Pain: severe Tone: Increased Pain: severe Pubococcygeus 3 3 Puborectalis 3 3 Iliococcygeus 3 3 Obturator internus Tone: Normal Pain: normal Tone: Normal Pain: normal Sacrospinous ligament non-tender non-tender Pudendal nerve non-tender non-tender Pelvic floor exam Does reproduce her typical pain symptoms Skin: Normal temperature. No edema. No visible skin lesions. Psych: Alert, oriented. Interactions: appropriate Affect: WNL and appropriate to content TESTING IMAGING: US PELVIS TRANSVA07/16/2023 IMPRESSION: Heterogeneous echotexture of the uterus. Nabothian cyst Ovaries not identified. Uterus: -Size: 7.2 x 3.3 x 4.8 cm -Orientation: Anteverted -Endometrial echo complex: Evaluation of the endometrium was adequate. No endometrial abnormality. The endometrial echo complex measured 0.5 cm. -Cervix: Small nabothian cyst noted. -Adenomyosis assessment: There are no sonographic findings of adenomyosis. -Fibroids: Heterogeneous echotexture. Right Ovary: Not visualized Left Ovary: Not visualized. Free Fluid: No abnormal free fluid is present. 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 Adenomyosis N80.03 3. Superficial dyspareunia N94.11 4. Deep dyspareunia N94.12 5. High-tone pelvic floor dysfunction N94.89 CONSULT TO PHYSICAL THERAPY baclofen suppository 10 mg (CPD) Patient is a 58 year old female who reports superficial and deep dyspareunia as well as vaginal irritation. She takes Estrace for vaginal dryness but it has not improved her symptoms. Upon examination she had vulvodynia and high tone pelvic floor dysfunction. Prescribed baclofen 10 mg Referred to PFPT Continue using estrogen cream Follow up November 2023 virtually Patient verbalized understanding of the plan of care and all questions were answered to her stated satisfaction. Written and verbal health teaching given to patient, patient verbalizes understanding and agrees with treatment plan. ATTESTATION: By signing my name below, I, Wen Kt, attest that this documentation has been prepared under the direction and in the presence of Dr. Abreu Electronically signed, Haylie Mendieta Date: 10/02/2023 Time: 11:21 AM Medical Decision Making: Problems: Moderate: 1+ chronic illnesses with change Data: Unique test result(s) reviewed: 1 Risk: Moderate: Moderate risk from testing/treatment and Drug management Medical Decision Making Level: 4 - Moderate I personally interviewed, confirmed and edited the above information if obtained by others. Maria T Abreu MD CPP Summary: DIAGNOSES: vulvodynia, high tone pfd Surgery 1. Procedures (TPI, botox, pain bocks, etc) 1. Nonhormonal Medications 1. Baclofen 10 mg Hormonal medications (IUD, control pill, GNRH) 1. Estrace cream Services (GI, urology, pain psych,PFPT) 1. Referred to pfpt 09/2023 ORDERS PLACED . Office Visit on 10/02/23 CONSULT TO [facility] CONSULT TO PHYSICAL THERAPY baclofen suppository 10 mg (CPD) documented in this encounter [facility] 10-01-2023 Miscellaneous Notes Mammogram order from [facility] faxed to [facility] documented in this encounter [facility] 09-03-2023 Note HNO ID: [id number] Author: LISE AVILA APRN.SPORTS ADMINISTRATOR Service: ? Author Type: Nurse Practitioner Type: Progress Notes Filed: 09/03/2023 16:39 Note Text: Lisa Hutson is a 58 year old female who presents for problem visit for chronic pelvic pain. HPI: Lisa has been using estrogen cream since the beginning of June without relief. Her pain is about the same. It is worse for a few days after intercourse. She has not had any postmenopausal bleeding. She had an ultrasound in June 2023 that showed a heterogenous echo texture of the uterus. The endometrial complex was 5 mm, but again, no PMB. 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 Comments: Sexual Activity: Yes; Male; with last csection Contraception: Tubal Ligation PAST MEDICAL HISTORY Diagnosis Date NONE PAST SURGICAL HISTORY Procedure Laterality Date DELIVERY ONLY three FAMILY HISTORY Problem Relation Age of Onset Heart Father Cancer Maternal Grandmother Diabetes Maternal Grandmother Heart Maternal Grandmother Social History Tobacco Use Smoking status: Never Smokeless tobacco: Never Vaping Use Vaping Use: Never used Substance Use Topics Alcohol use: No Drug use: No Current Outpatient Medications Medication Sig estradiol (ESTRACE) 0.01 % (0.1 mg/gram) vaginal cream Use 1 g vaginally two times a week. No current facility-administered medications for this visit. Allergies As of Date: 09/03/2023 (No Known Allergies) Fully Assessed 07/05/2023 REVIEW OF SYSTEMS Abdomen: No bloating, early satiety, indigestion, or increased flatulence. No abdominal pain, nausea, vomiting, diarrhea, or constipation. Bladder: No dysuria, gross hematuria, urinary frequency, urinary urgency, or incontinence. Breast: No breast lumps, nipple d/c, overlying skin changes, redness or skin retraction. Expanded ROS: N/A Allergies and current medication updated:Yes EXAM: BP 138/78 Wt 143 lb 6.4 oz (65.0kg) LMP 05/30/2022 GENERAL: pleasant, female in no apparent distress HEENT: Normocephalic, atraumatic, mucus membranes moist, and no lesions NECK: Supple, full range of motion, no adenopathy, and thyroid normal DERMATOLOGY: Normal, without lesions, non-icteric, and non-hirsute BREAST: deferred CHEST: Normal inspiratory effort ABDOMEN: Deferred PELVIC: external genitalia normal, normal Bartholin's glands, urethra, [place]'s glands, no vulvar lesions, no cervical lesions, good vaginal support, physiologic discharge present, normal appearing perineal body and perianal region + atrophy noted to labia majora, vaginal sher, and cervix BIMANUAL: uterus normal size, shape and consistency, no adnexal masses, and non-tender NEURO: alert and oriented x3,exam grossly non-focal EXTREMITIES: normal ASSESSMENT AND PLAN: 1. Chronic pelvic pain in female - ICD9: 625.9, 338.29, ICD10: R10.2, G89.29 (primary diagnosis) - No relief with vaginal estrogen cream - Recommend chronic pelvic pain clinic - Consider pelvic floor therapy - Patient agreeable to chronic pelvic pain clinic - CONSULT TO [facility] RTO for annual. Lise Avila APRN.SPORTS ADMINISTRATOR Medical Decision Making: Problems: Low: Stable chronic illness Data: Unique test(s) ordered: 2 Risk: Low: Low risk from testing/treatment Medical Decision Making Level: 3 - Low [facility] 09-03-2023 Miscellaneous Notes Patient requesting to schedule with [facility] Pel[facility]. Please advise. Maira Coy PSS documented in this encounter [facility] 09-03-2023 History of Present illness Narrative Lisa Hutson is a 58 year old female who presents for problem visit for chronic pelvic pain. HPI: Lisa has been using estrogen cream since the beginning of June without relief. Her pain is about the same. It is worse for a few days after intercourse. She has not had any postmenopausal bleeding. She had an ultrasound in June 2023 that showed a heterogenous echo texture of the uterus. The endometrial complex was 5 mm, but again, no PMB. 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 Comments: Sexual Activity: Yes; Male; with last csection Contraception: Tubal Ligation PAST MEDICAL HISTORY Diagnosis Date NONE PAST SURGICAL HISTORY Procedure Laterality Date DELIVERY ONLY three FAMILY HISTORY Problem Relation Age of Onset Heart Father Cancer Maternal Grandmother Diabetes Maternal Grandmother Heart Maternal Grandmother Social History Tobacco Use Smoking status: Never Smokeless tobacco: Never Vaping Use Vaping Use: Never used Substance Use Topics Alcohol use: No Drug use: No Current Outpatient Medications Medication Sig estradiol (ESTRACE) 0.01 % (0.1 mg/gram) vaginal cream Use 1 g vaginally two times a week. No current facility-administered medications for this visit. Allergies As of Date: 09/03/2023 (No Known Allergies) Fully Assessed 07/05/2023 REVIEW OF SYSTEMS Abdomen: No bloating, early satiety, indigestion, or increased flatulence. No abdominal pain, nausea, vomiting, diarrhea, or constipation. Bladder: No dysuria, gross hematuria, urinary frequency, urinary urgency, or incontinence. Breast: No breast lumps, nipple d/c, overlying skin changes, redness or skin retraction. Expanded ROS: N/A Allergies and current medication updated:Yes EXAM: BP 138/78 Wt 143 lb 6.4 oz (65.0kg) LMP 05/30/2022 GENERAL: pleasant, female in no apparent distress HEENT: Normocephalic, atraumatic, mucus membranes moist, and no lesions NECK: Supple, full range of motion, no adenopathy, and thyroid normal DERMATOLOGY: Normal, without lesions, non-icteric, and non-hirsute BREAST: deferred CHEST: Normal inspiratory effort ABDOMEN: Deferred PELVIC: external genitalia normal, normal Bartholin's glands, urethra, [place]'s glands, no vulvar lesions, no cervical lesions, good vaginal support, physiologic discharge present, normal appearing perineal body and perianal region + atrophy noted to labia majora, vaginal sher, and cervix BIMANUAL: uterus normal size, shape and consistency, no adnexal masses, and non-tender NEURO: alert and oriented x3,exam grossly non-focal EXTREMITIES: normal ASSESSMENT AND PLAN: 1. Chronic pelvic pain in female - ICD9: 625.9, 338.29, ICD10: R10.2, G89.29 (primary diagnosis) - No relief with vaginal estrogen cream - Recommend chronic pelvic pain clinic - Consider pelvic floor therapy - Patient agreeable to chronic pelvic pain clinic - CONSULT TO [facility] PA[facility] RTO for annual. Lise Avila APRN.CNP Medical Decision Making: Problems: Low: Stable chronic illness Data: Unique test(s) ordered: 2 Risk: Low: Low risk from testing/treatment Medical Decision Making Level: 3 - Low documented in this encounter [facility] 07-18-2023 Miscellaneous Notes Also discussed elevated BP with patient. She reports that it is normal at home and only elevated with doctor appointments. Lise Avila APRN.CNP documented in this encounter [facility] 07-12-2023 Note HNO ID: [id number] Author: Maria T Johnson RDMS Service: ? Author Type: Razor Sharpener Type: Progress Notes Filed: 07/12/2023 3:50 PM Note Text: Radiology Service Progress Note PATIENT NAME: Lisa Hutson DATE OF SERVICE: July 12, 2023 TIME: 3:50 PM PATIENT IDENTITY VERIFICATION COMPLETED USING TWO (2) IDENTIFIERS: Name and Date of confirmed by patient verbally. FALL SCREENING: Has the patient had 2 falls in the last year or 1 fall with injury or currently using an Ambulatory Assistive Device (Walker, Cane, Wheelchair, Crutches, etc.)? No PATIENT GENDER DATA: Female. status: : No status: NO. PATIENT RELEVANT IMPLANT DATA REVIEWED: Not Applicable RADIOLOGY DEPARTMENT: Ultrasound PERIPHERAL IV DATA: Not applicable SIGNED BY: Maria T Johnson RDMS RVT July 12, 2023 3:50 PM [facility] 07-05-2023 Note HNO ID: [id number] Author: Lise Avila APRN.CNP Service: ? Author Type: Nurse Practitioner Type: Progress Notes Filed: 07/05/2023 12:25 PM Note Text: Lisa Hutson is a 58 year old female who presents for problem visit of pain with intercourse. HPI: Patient reports pain with intercourse for about 6 months. Was previously evaluated by [facility] - pelvic ultrasound performed. Pain is about the same since. After intercourse, experiences discomfort for a few days. No bleeding for over a year. No pain with day to day. Denies urinary symptoms. Does not take anything for it. 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 No current facility-administered medications for this visit. Allergies As of Date: 07/05/2023 (No Known Allergies) Fully Assessed 07/05/2023 REVIEW OF SYSTEMS Abdomen: No bloating, early satiety, indigestion, or increased flatulence. No abdominal pain, nausea, vomiting, diarrhea, or constipation. Bladder: No dysuria, gross hematuria, urinary frequency, urinary urgency, or incontinence. Breast: No breast lumps, nipple d/c, overlying skin changes, redness or skin retraction. Expanded ROS: N/A Allergies and current medication updated:Yes EXAM: BP 168/70 Ht 5' 2 (1.58m) Wt 141 lb (64.0kg) LMP 05/30/2022 BMI 25.78 kg/(m2). GENERAL: pleasant, female in no apparent distress HEENT: Normocephalic, atraumatic, mucus membranes moist, and no lesions CHEST: Normal inspiratory effort ABDOMEN: soft, non-tender, and no masses PELVIC: external genitalia normal, normal Bartholin's glands, urethra, [place]'s glands, no vulvar lesions, no cervical lesions, good vaginal support, physiologic discharge present, normal appearing perineal body and perianal region + vaginal atrophy noted BIMANUAL: uterus normal size, shape and consistency, no adnexal masses, and non-tender NEURO: alert and oriented x3,exam grossly non-focal EXTREMITIES: normal ASSESSMENT AND PLAN: 1. Vaginal atrophy - ICD9: 627.3, ICD10: N95.2 (primary diagnosis) - Recommend vaginal estrogen cream - May be cause of pain with intercourse - To follow up on use with annual in Aug. 2. Pelvic pain in female - ICD9: 625.9, ICD10: R10.2 - URINE CULTURE - BV Yeast cultures - Had ultrasound November 2022 with [facility]. Endometrial thickness 6 mm. No visualization of ovaries. - Consider repeat ultrasound. 3. Other specified dyspareunia - ICD9: 625.0, ICD10: N94.19 - Vaginal lubricant/moisturizer information - Estrogen cream prescribed Will notify with results. Consider pelvic ultrasound if labs negative. Follow up on atrophy with annual in August. Lise Avlia APRN.CNP Medical Decision Making: Problems: Low: Stable chronic illness Data: Unique test result(s) reviewed: 1 Unique test(s) ordered: 3+ Risk: Low: Low risk from testing/treatment Moderate: Drug management Medical Decision Making Level: 4 - Moderate [facility] 07-05-2023 Instructions Lise Avila APRN.DUY - 07/05/2023 11:47 AM EST Use vaginal estrogen cream nightly for 2 weeks and then twice a week. Vaginal atrophy is caused by a decreased amount of estrogen, which can occur after menopause. Decreased estrogen results in the following: reduced blood flow to the vaginal tissues, thin/dry vaginal lining, decreased vaginal wall elasticity, and vaginal narrowing. Vaginal sher are flexible with a thick lining and have a healthy blood flow to the vaginal tissue in premenopausal patients. This can cause pain with intercourse, dryness, irritation, itching, and even recurrent UTIs in some patients. Many women experience vaginal dryness which can cause discomfort with exercise and sexual activity, especially vaginal intercourse. Common causes of vaginal dryness include menopause, , control pills, cancer treatments and other medications. There are many xebo-anm-utcaldr products that are available to treat this condition. Lubricants are a temporary measure to minimize friction and irritation and allow for vaginal intercourse. There are different types of lubricants. Water-based lubricants dry quickly and usually will need to be reapplied during sexual activity. Oil-based lubricants are not compatible with condoms. Silicone-based lubricants should be used with caution in the shower as they can make floors slippery. Household food oils such as olive oil, coconut oil, corn oil and Cristco may increase the risk of vaginal infections such as bacterial vaginosis and yeast. Pre-seed is designed for patients trying to conceive as it does not affect sperm motility. You may need to try several different brands of lubricant until you find the one that works best for you. When choosing a lubricant, avoid those that contain perfumes, flavors or warming ingredients. Benzyl alcohol and glycerin can cause drying and irritation and parabens may be harmful to health. Look for 510(k) Clearance which means that all ingredients are considered safe by the FDA. You can search for approved products on the FDA website at http://www.accessdata.fda.gov/scr ipts/cdrh/cfdocs/cfpmn/pmn.cfm. Examples of 510(k) cleared lubricants include Uberlube, Sylk, Good Clean Love and Astroglide. Vaginal moisturizers such as Luvena and Replens are designed for regular use several times a week for long-term relief of vaginal dryness. Some formulations contain a pre-biotic to help maintain vaginal pH and protect against bacterial vaginosis and yeast. For post-menopausal women who have persistent vaginal dryness, prescription treatments are available including vaginal estrogen and vaginal laser therapy. Talk to your doctor if your symptoms are not resolved by lubricant or moisturizer use. documented in this encounter [facility] 07-05-2023 History of Present illness Narrative Lisa Hutson is a 58 year old female who presents for problem visit of pain with intercourse. HPI: Patient reports pain with intercourse for about 6 months. Was previously evaluated by [facility] - pelvic ultrasound performed. Pain is about the same since. After intercourse, experiences discomfort for a few days. No bleeding for over a year. No pain with day to day. Denies urinary symptoms. Does not take anything for it. 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 No current facility-administered medications for this visit. Allergies As of Date: 07/05/2023 (No Known Allergies) Fully Assessed 07/05/2023 REVIEW OF SYSTEMS Abdomen: No bloating, early satiety, indigestion, or increased flatulence. No abdominal pain, nausea, vomiting, diarrhea, or constipation. Bladder: No dysuria, gross hematuria, urinary frequency, urinary urgency, or incontinence. Breast: No breast lumps, nipple d/c, overlying skin changes, redness or skin retraction. Expanded ROS: N/A Allergies and current medication updated:Yes EXAM: BP 168/70 Ht 5' 2 (1.58m) Wt 141 lb (64.0kg) LMP 05/30/2022 BMI 25.78 kg/(m^2). GENERAL: pleasant, female in no apparent distress HEENT: Normocephalic, atraumatic, mucus membranes moist, and no lesions CHEST: Normal inspiratory effort ABDOMEN: soft, non-tender, and no masses PELVIC: external genitalia normal, normal Bartholin's glands, urethra, [place]'s glands, no vulvar lesions, no cervical lesions, good vaginal support, physiologic discharge present, normal appearing perineal body and perianal region + vaginal atrophy noted BIMANUAL: uterus normal size, shape and consistency, no adnexal masses, and non-tender NEURO: alert and oriented x3,exam grossly non-focal EXTREMITIES: normal ASSESSMENT AND PLAN: 1. Vaginal atrophy - ICD9: 627.3, ICD10: N95.2 (primary diagnosis) - Recommend vaginal estrogen cream - May be cause of pain with intercourse - To follow up on use with annual in Aug. 2. Pelvic pain in female - ICD9: 625.9, ICD10: R10.2 - URINE CULTURE - BV Yeast cultures - Had ultrasound November 2022 with [place]. Endometrial thickness 6 mm. No visualization of ovaries. - Consider repeat ultrasound. 3. Other specified dyspareunia - ICD9: 625.0, ICD10: N94.19 - Vaginal lubricant/moisturizer information - Estrogen cream prescribed Will notify with results. Consider pelvic ultrasound if labs negative. Follow up on atrophy with annual in August. Lise Avila APRN.SPORTS ADMINISTRATOR Medical Decision Making: Problems: Low: Stable chronic illness Data: Unique test result(s) reviewed: 1 Unique test(s) ordered: 3+ Risk: Low: Low risk from testing/treatment Moderate: Drug management Medical Decision Making Level: 4 - Moderate documented in this encounter [facility] 03-23-2023 Note HNO ID: [id number] Author: Nelda Allison APRN.[facility] Service: ? Author Type: Nurse Practitioner Type: Progress Notes Filed: 03/23/2023 3:59 PM Note Text: CC: Patient presents with: Ear Pain: Bilateral ear pain, sinus and BARRIOS off and on x 1 month HPI: Lisa Hutson is a 57 year old female who presents to the office with complaint of head congestion, cough, nonproductive, sinus symptoms, and ear symptoms for a month. Symptoms are worsening Associated symptoms includes cough. Denies fever, nausea, vomiting , and diarrhea. Treatments tried include nothing so far. with no relief of symptoms. Sick contacts: unknown. History of asthma, frequent episodes of bronchitis, chronic bronchitis, bronchiectasis or COPD: No Smoker: No Seasonal/environmental allergies: No The ROS is otherwise negative. The patient's pmh, medications, allergies, and past visits are reviewed. PHYSICAL EXAM: BP 142/80 Pulse 68 Temp 36.8 ?C (98.3 ?F) (Tympanic) Resp 16 Wt 65.6 kg (144 lb 9.6 oz) LMP 10/06/2016 SpO2 98% General appearance: alert, cooperative, pleasant, in no acute distress Head: Normocephalic Eyes: EOM's intact, conjunctiva pink and moist, no icterus, sclera white, non-injected Ears: Right ear: External ear/canal- Normal, TM - clear with good landmarks. Left ear: External ear/canal- Normal, TM - clear with good landmarks Oropharynx:moist without lesions, No erythema, exudates or tonsillar hypertrophy. Heart: Negative. RRR without obvious murmur, gallop, or rubs. No ectopy. Lungs: clear to auscultation, without rales or wheeze, good air exchange PAST MEDICAL HISTORY Diagnosis Date NONE PAST SURGICAL HISTORY Procedure Laterality Date DELIVERY ONLY three ALLERGIES Patient has no known allergies. MEDICATIONS doxycycline monohydrate 100 mg tablet Take 1 tablet by mouth twice daily for 7 days. benzonatate (TESSALON PERLE) 100 mg capsule Take 1 capsule by mouth three times daily as needed. (Patient not taking: No sig reported) phenazopyridine (PYRIDIUM, GERIDIUM) 200 mg tablet Take 1 tablet by mouth three times daily as needed. (Patient not taking: No sig reported) FAMILY HISTORY Problem Relation Age of Onset Cancer Maternal Grandmother Diabetes Maternal Grandmother Heart Maternal Grandmother Heart Father Social History Tobacco Use Smoking status: Never Smokeless tobacco: Never Substance Use Topics Alcohol use: No Drug use: No ASSESSMENT/PLAN: 1. Rhinosinusitis - ICD9: 473.9, ICD10: J31.0, J32.9 - DOXYCYCLINE MONOHYDRATE 100 MG TABLET Prescription instructions reviewed with patient as applicable. Potential red flag symptoms discussed with the patient. Reviewed appropriate action plan to take if red flag symptoms occur. Patient agreeable to treatment plan. Nelda Allison APRN.[facility] 03-23-2023 History of Present illness Narrative CC: Patient presents with: Ear Pain: Bilateral ear pain, sinus and BARRIOS off and on x 1 month HPI: Lisa Hutson is a 57 year old female who presents to the office with complaint of head congestion, cough, nonproductive, sinus symptoms, and ear symptoms for a month. Symptoms are worsening Associated symptoms includes cough. Denies fever, nausea, vomiting , and diarrhea. Treatments tried include nothing so far. with no relief of symptoms. Sick contacts: unknown. History of asthma, frequent episodes of bronchitis, chronic bronchitis, bronchiectasis or COPD: No Smoker: No Seasonal/environmental allergies: No The ROS is otherwise negative. The patient's pmh, medications, allergies, and past visits are reviewed. PHYSICAL EXAM: BP 142/80 Pulse 68 Temp 36.8 C (98.3 F) (Tympanic) Resp 16 Wt 65.6 kg (144 lb 9.6 oz) LMP 10/06/2016 SpO2 98% General appearance: alert, cooperative, pleasant, in no acute distress Head: Normocephalic Eyes: EOM's intact, conjunctiva pink and moist, no icterus, sclera white, non-injected Ears: Right ear: External ear/canal- Normal, TM - clear with good landmarks. Left ear: External ear/canal- Normal, TM - clear with good landmarks Oropharynx:moist without lesions, No erythema, exudates or tonsillar hypertrophy. Heart: Negative. RRR without obvious murmur, gallop, or rubs. No ectopy. Lungs: clear to auscultation, without rales or wheeze, good air exchange PAST MEDICAL HISTORY Diagnosis Date NONE PAST SURGICAL HISTORY Procedure Laterality Date DELIVERY ONLY three ALLERGIES Patient has no known allergies. MEDICATIONS doxycycline monohydrate 100 mg tablet Take 1 tablet by mouth twice daily for 7 days. benzonatate (TESSALON PERLE) 100 mg capsule Take 1 capsule by mouth three times daily as needed. (Patient not taking: No sig reported) phenazopyridine (PYRIDIUM, GERIDIUM) 200 mg tablet Take 1 tablet by mouth three times daily as needed. (Patient not taking: No sig reported) FAMILY HISTORY Problem Relation Age of Onset Cancer Maternal Grandmother Diabetes Maternal Grandmother Heart Maternal Grandmother Heart Father Social History Tobacco Use Smoking status: Never Smokeless tobacco: Never Substance Use Topics Alcohol use: No Drug use: No ASSESSMENT/PLAN: 1. Rhinosinusitis - ICD9: 473.9, ICD10: J31.0, J32.9 - DOXYCYCLINE MONOHYDRATE 100 MG TABLET Prescription instructions reviewed with patient as applicable. Potential red flag symptoms discussed with the patient. Reviewed appropriate action plan to take if red flag symptoms occur. Patient agreeable to treatment plan. Nelda Allison APRN.SPORTS ADMINISTRATOR documented in this encounter [facility] 03-06-2023 Note HNO ID: [id number] Author: Krupa Johnson APRN.SPORTS ADMINISTRATOR Service: ? Author Type: Nurse Practitioner Type: Progress Notes Filed: 03/06/2023 4:05 PM Note Text: Subjective Ear Pain Associated symptoms include coughing and headaches. Pertinent negatives include no chills, congestion, fever, myalgias or sore throat. Lisa Hutson is a 57 year old female who presents with left ear pain for the past 2 days. She describes the pain as sharp and intermittent. She states her ear feels clogged . She has also had a headache. She has taken motrin for ear pain. She has had a cough for the past 2 weeks. Had viral URI symptoms which resolved but cough persisted. She has taken Mucinex for the cough. Review of Systems Constitutional: Negative for chills and fever. HENT: Positive for ear pain and hearing loss. Negative for congestion and sore throat. Respiratory: Positive for cough. Cardiovascular: Negative. Musculoskeletal: Negative for myalgias. Neurological: Positive for headaches. BP 148/80 Pulse 72 Temp 37.1 ?C (98.7 ?F) (Tympanic) Resp 16 Wt 65.3 kg (144 lb) LMP 10/06/2016 SpO2 97% PAST MEDICAL HISTORY Diagnosis Date NONE PAST SURGICAL HISTORY Procedure Laterality Date DELIVERY ONLY three ALLERGIES Patient has no known allergies. MEDICATIONS amoxicillin (AMOXIL) 875 mg tablet Take 1 tablet by mouth twice daily for 7 days. benzonatate (TESSALON PERLE) 100 mg capsule Take 1 capsule by mouth three times daily as needed. (Patient not taking: No sig reported) phenazopyridine (PYRIDIUM, GERIDIUM) 200 mg tablet Take 1 tablet by mouth three times daily as needed. (Patient not taking: No sig reported) FAMILY HISTORY Problem Relation Age of Onset Cancer Maternal Grandmother Diabetes Maternal Grandmother Heart Maternal Grandmother Heart Father Social History Tobacco Use Smoking status: Never Smokeless tobacco: Never Substance Use Topics Alcohol use: No Drug use: No Objective Physical Exam Vitals and nursing note reviewed. Constitutional: General: She is not in acute distress. Appearance: Normal appearance. She is not ill-appearing. HENT: Right Ear: Tympanic membrane, ear canal and external ear normal. Left Ear: Ear canal and external ear normal. A middle ear effusion is present. Tympanic membrane is injected. Mouth/Throat: Mouth: Mucous membranes are moist. Pharynx: Oropharynx is clear. Uvula midline. No oropharyngeal exudate or posterior oropharyngeal erythema. Cardiovascular: Rate and Rhythm: Normal rate and regular rhythm. Heart sounds: Normal heart sounds. Pulmonary: Effort: Pulmonary effort is normal. No respiratory distress. Breath sounds: Normal breath sounds. No wheezing or rales. Musculoskeletal: Cervical back: Neck supple. Lymphadenopathy: Cervical: No cervical adenopathy. Skin: General: Skin is warm and dry. Findings: No erythema or rash. Neurological: Mental Status: She is alert. ASSESSMENT/PLAN: 1. Otitis media with effusion, left - ICD9: 381.4, ICD10: H65.92 - Will begin treatment with as per antibiotic as written, see orders - The patient should also be given Flonase nasal spray for the first 5-7 days of treatment. - Supportive care with plenty of fluids, rest, and analgesia prn. 2. Acute cough - ICD9: 786.2, ICD10: R05.1 - lung exam normal today. - continue mucinex - Follow-up with your PCP in 3-5 days if symptoms have not improved or sooner if symptoms worsen - Discussed red flags and need for immediate medical evaluation if any occur. - Discussed supportive care treatment with fluids, rest and analgesia. - Discussed expected course of illness Krupa Johnson APRN.CNP [facility] 03-06-2023 Instructions Krupa Johnson APRN.CNP - 03/06/2023 4:03 PM EDT ASSESSMENT/PLAN: 1. Otitis media with effusion, left - ICD9: 381.4, ICD10: H65.92 - Will begin treatment with as per antibiotic as written, see orders - The patient should also be given Flonase nasal spray for the first 5-7 days of treatment. - Supportive care with plenty of fluids, rest, and analgesia prn. 2. Acute cough - ICD9: 786.2, ICD10: R05.1 - lung exam normal today. - continue mucinex - Follow-up with your PCP in 3-5 days if symptoms have not improved or sooner if symptoms worsen - Discussed red flags and need for immediate medical evaluation if any occur. - Discussed supportive care treatment with fluids, rest and analgesia. - Discussed expected course of illness Krupa Johnson APRN.CNP documented in this encounter [facility] 03-06-2023 History of Present illness Narrative Subjective Ear Pain Associated symptoms include coughing and headaches. Pertinent negatives include no chills, congestion, fever, myalgias or sore throat. Lisa Hutson is a 57 year old female who presents with left ear pain for the past 2 days. She describes the pain as sharp and intermittent. She states her ear feels clogged . She has also had a headache. She has taken motrin for ear pain. She has had a cough for the past 2 weeks. Had viral URI symptoms which resolved but cough persisted. She has taken Mucinex for the cough. Review of Systems Constitutional: Negative for chills and fever. HENT: Positive for ear pain and hearing loss. Negative for congestion and sore throat. Respiratory: Positive for cough. Cardiovascular: Negative. Musculoskeletal: Negative for myalgias. Neurological: Positive for headaches. BP 148/80 Pulse 72 Temp 37.1 C (98.7 F) (Tympanic) Resp 16 Wt 65.3 kg (144 lb) LMP 10/06/2016 SpO2 97% PAST MEDICAL HISTORY Diagnosis Date NONE PAST SURGICAL HISTORY Procedure Laterality Date DELIVERY ONLY three ALLERGIES Patient has no known allergies. MEDICATIONS amoxicillin (AMOXIL) 875 mg tablet Take 1 tablet by mouth twice daily for 7 days. benzonatate (TESSALON PERLE) 100 mg capsule Take 1 capsule by mouth three times daily as needed. (Patient not taking: No sig reported) phenazopyridine (PYRIDIUM, GERIDIUM) 200 mg tablet Take 1 tablet by mouth three times daily as needed. (Patient not taking: No sig reported) FAMILY HISTORY Problem Relation Age of Onset Cancer Maternal Grandmother Diabetes Maternal Grandmother Heart Maternal Grandmother Heart Father Social History Tobacco Use Smoking status: Never Smokeless tobacco: Never Substance Use Topics Alcohol use: No Drug use: No Objective Physical Exam Vitals and nursing note reviewed. Constitutional: General: She is not in acute distress. Appearance: Normal appearance. She is not ill-appearing. HENT: Right Ear: Tympanic membrane, ear canal and external ear normal. Left Ear: Ear canal and external ear normal. A middle ear effusion is present. Tympanic membrane is injected. Mouth/Throat: Mouth: Mucous membranes are moist. Pharynx: Oropharynx is clear. Uvula midline. No oropharyngeal exudate or posterior oropharyngeal erythema. Cardiovascular: Rate and Rhythm: Normal rate and regular rhythm. Heart sounds: Normal heart sounds. Pulmonary: Effort: Pulmonary effort is normal. No respiratory distress. Breath sounds: Normal breath sounds. No wheezing or rales. Musculoskeletal: Cervical back: Neck supple. Lymphadenopathy: Cervical: No cervical adenopathy. Skin: General: Skin is warm and dry. Findings: No erythema or rash. Neurological: Mental Status: She is alert. ASSESSMENT/PLAN: 1. Otitis media with effusion, left - ICD9: 381.4, ICD10: H65.92 - Will begin treatment with as per antibiotic as written, see orders - The patient should also be given Flonase nasal spray for the first 5-7 days of treatment. - Supportive care with plenty of fluids, rest, and analgesia prn. 2. Acute cough - ICD9: 786.2, ICD10: R05.1 - lung exam normal today. - continue mucinex - Follow-up with your PCP in 3-5 days if symptoms have not improved or sooner if symptoms worsen - Discussed red flags and need for immediate medical evaluation if any occur. - Discussed supportive care treatment with fluids, rest and analgesia. - Discussed expected course of illness Krupa Johnson APRN.SPORTS ADMINISTRATOR documented in this encounter [facility] 12-09-2022 Note HNO ID: [id number] Author: Nelda Allison APRN.SPORTS ADMINISTRATOR Service: ? Author Type: Nurse Practitioner Type: Progress Notes Filed: 12/09/2022 10:33 AM Note Text: CC: Patient presents with: UTI: Burning and frequency to urinate HPI Lisa Hutson is a 57 year old female who presents with complaint of possible UTI. These symptoms have been present for 14 days. Associated symptoms: burning, frequency, the burning is all the time not just when she urinates Denies: foul smelling urine, hematuria, fever, chills, sweats, abdominal pain, flank pain, abnormal vaginal discharge, vaginal redness , and vaginal itching Treatments: nothing The ROS was otherwise negative. PMH, Medications, labs, allergies, and recent past visits with PCP were reviewed and updated as able. PHYSICAL EXAM: BP 142/80 Pulse 85 Temp 37.1 ?C (98.7 ?F) Resp 16 Wt 64.4 kg (142 lb) LMP 10/06/2016 SpO2 98% General: Well appearing and alert CV: Regular rate and rhythm without obvious murmur Lungs: clear to auscultation bilaterally Back: straight and symmetric Abdomen: soft, nontender, nondistended PAST MEDICAL HISTORY Diagnosis Date NONE PAST SURGICAL HISTORY Procedure Laterality Date DELIVERY ONLY three ALLERGIES Patient has no known allergies. MEDICATIONS benzonatate (TESSALON PERLE) 100 mg capsule Take 1 capsule by mouth three times daily as needed. (Patient not taking: No sig reported) phenazopyridine (PYRIDIUM, GERIDIUM) 200 mg tablet Take 1 tablet by mouth three times daily as needed. (Patient not taking: No sig reported) FAMILY HISTORY Problem Relation Age of Onset Cancer Maternal Grandmother Diabetes Maternal Grandmother Heart Maternal Grandmother Heart Father Social History Tobacco Use Smoking status: Never Smokeless tobacco: Never Substance Use Topics Alcohol use: No Drug use: No ASSESSMENT/PLAN: 1. Burning with urination - ICD9: 788.1, ICD10: R30.0 - UA DIP, URINE (POC) - URINE CULTURE Does not want an exam or STD testing at this time. Patient will call her SPRINKLER HELPER Sunday for further testing. Potential red flag symptoms discussed with the patient. Reviewed appropriate action plan to take if red flag symptoms occur. Patient agreeable to treatment plan. Nelda Allison APRN.[facility] 12-09-2022 History of Present illness Narrative CC: Patient presents with: UTI: Burning and frequency to urinate HPI Lisa Hutson is a 57 year old female who presents with complaint of possible UTI. These symptoms have been present for 14 days. Associated symptoms: burning, frequency, the burning is all the time not just when she urinates Denies: foul smelling urine, hematuria, fever, chills, sweats, abdominal pain, flank pain, abnormal vaginal discharge, vaginal redness , and vaginal itching Treatments: nothing The ROS was otherwise negative. PMH, Medications, labs, allergies, and recent past visits with PCP were reviewed and updated as able. PHYSICAL EXAM: BP 142/80 Pulse 85 Temp 37.1 C (98.7 F) Resp 16 Wt 64.4 kg (142 lb) LMP 10/06/2016 SpO2 98% General: Well appearing and alert CV: Regular rate and rhythm without obvious murmur Lungs: clear to auscultation bilaterally Back: straight and symmetric Abdomen: soft, nontender, nondistended PAST MEDICAL HISTORY Diagnosis Date NONE PAST SURGICAL HISTORY Procedure Laterality Date DELIVERY ONLY three ALLERGIES Patient has no known allergies. MEDICATIONS benzonatate (TESSALON PERLE) 100 mg capsule Take 1 capsule by mouth three times daily as needed. (Patient not taking: No sig reported) phenazopyridine (PYRIDIUM, GERIDIUM) 200 mg tablet Take 1 tablet by mouth three times daily as needed. (Patient not taking: No sig reported) FAMILY HISTORY Problem Relation Age of Onset Cancer Maternal Grandmother Diabetes Maternal Grandmother Heart Maternal Grandmother Heart Father Social History Tobacco Use Smoking status: Never Smokeless tobacco: Never Substance Use Topics Alcohol use: No Drug use: No ASSESSMENT/PLAN: 1. Burning with urination - ICD9: 788.1, ICD10: R30.0 - UA DIP, URINE (POC) - URINE CULTURE Does not want an exam or STD testing at this time. Patient will call her SPRINKLER HELPER Sunday for further testing. Potential red flag symptoms discussed with the patient. Reviewed appropriate action plan to take if red flag symptoms occur. Patient agreeable to treatment plan. Nelda Allison APRN.[facility] documented in this encounter [facility] Diagnosis Otitis media with effusion, left- Primary Acute cough [facility] Diagnosis Rhinosinusitis- Primary Unspecified sinusitis (chronic) [facility] Diagnosis Vaginal atrophy- Primary Postmenopausal atrophic vaginitis Pelvic pain in female Unspecified symptom associated with female genital organs Other specified dyspareunia [facility] Diagnosis Chronic pelvic pain in female- Primary Unspecified symptom associated with female genital organs Encounter for screening mammogram for malignant neoplasm of breast Other screening mammogram Cervical cancer screening Screening for malignant neoplasm of the cervix Special screening examination for human papillomavirus (HPV) [facility] Diagnosis Vulvodynia- Primary Vulvodynia, unspecified Adenomyosis Endometriosis of uterus Superficial dyspareunia Deep dyspareunia High-tone pelvic floor dysfunction Other specified disorders of female genital organs [facility] Diagnostic Procedure Only (Routine) - Authorized Specialty Diagnoses / Procedures Referred By Jose t Referred To Contact [facility] Diagnoses Encounter for screening mammogram for malignant neoplasm of breast Procedures ZENAIDA SCREENING W PEDRO LUIS SCREENING DIGITAL BREAST TOMOSYNTHESIS BI SCREENING MAMMOGRAPHY BI 2-VIEW BREAST INC Lise Malin APRN.SPORTS ADMINISTRATOR [address] [place] [address] [facility] [address] [place] [address] Referral ID Status Reason Start Date Expiration Date Visits Requested Visits Authorized [id number] Authorized Auto-Generat ed Referral 09/03/2023 10/02/2024 1 1 * Consult, Test, Treat (Routine) - Authorized Specialty Diagnoses / Procedures Referred By Jose lyle Referred To Contact Diagnoses Chronic pelvic pain in female Procedures CONSULT TO SPRINKLER HELPER PELVIC PAIN OFFICE/OUTPATIENT [facility] 60 MINUTES Lise Avila APRN.CNP [address] [place] [address] Referral ID Status Reason Start Date Expiration Date Visits Requested Visits Authorized [id number] Authorized PCP Requested Referral Auto-Generate d Referral 09/03/2023 09/02/2024 1 1 [facility] Reason for Referral Specialty Diagnoses / Procedures Referred By Contshay t Referred To Contact [facility] Diagnoses High-tone pelvic floor dysfunction Procedures CONSULT TO PHYSICAL THERAPY PHYSICAL THERAPY EVALUATION HIGH COMPLEX 45 MINS Maria T Abreu MD [address] [place] [address] [facility] [address] [address] Referral ID Status Reason Start Date Expiration Date Visits Requested Visits Authorized [id number] Pending Review Auto-Generat ed Referral 10/02/2023 10/01/2024 1 1 Summary Purpose Family History No Family History Records Found Advance Directives No Advanced Directives Records Found Additional Source Comments Source Comments (unrecognize d section and content) In the event this informatio n is protected by the Federal Confidentiality of Alcohol and Drug Abuse Patient Records regulations: The Federal rules restrict any use of the information to criminally investigate or prosecute any alcohol or drug abuse patient.[facility] the event this information is protected by the Federal Confidentiality of Alcohol and Drug Abuse Patient Records regulations: The Federal rules restrict any use of the information to criminally investigate or prosecute any alcohol or drug abuse patient.[facility] the event this information is protected by the Federal Confidentiality of Alcohol and Drug Abuse Patient Records regulations: The Federal rules restrict any use of the information to criminally investigate or prosecute any alcohol or drug abuse patient.[facility] the event this information is protected by the Federal Confidentiality of Alcohol and Drug Abuse Patient Records regulations: The Federal rules restrict any use of the information to criminally investigate or prosecute any alcohol or drug abuse patient.[facility] the event this information is protected by the Federal Confidentiality of Alcohol and Drug Abuse Patient Records regulations: The Federal rules restrict any use of the information to criminally investigate or prosecute any alcohol or drug abuse patient.[facility] the event this information is protected by the Federal Confidentiality of Alcohol and Drug Abuse Patient Records regulations: The Federal rules restrict any use of the information to criminally investigate or prosecute any alcohol or drug abuse patient.[facility] the event this information is protected by the Federal Confidentiality of Alcohol and Drug Abuse Patient Records regulations: The Federal rules restrict any use of the information to criminally investigate or prosecute any alcohol or drug abuse patient.[facility] the event this information is protected by the Federal Confidentiality of Alcohol and Drug Abuse Patient Records regulations: The Federal rules restrict any use of the information to criminally investigate or prosecute any alcohol or drug abuse patient.[facility] the event this information is protected by the Federal Confidentiality of Alcohol and Drug Abuse Patient Records regulations: The Federal rules restrict any use of the information to criminally investigate or prosecute any alcohol or drug abuse patient.[facility] the event this information is protected by the Federal Confidentiality of Alcohol and Drug Abuse Patient Records regulations: The Federal rules restrict any use of the information to criminally investigate or prosecute any alcohol or drug abuse patient.[facility] Reason for Visit (unrecogniz ed section and content) Reason Comments Ear Pain Left ear pain x 2 da ys Reason Comments Ear Pain Bilateral ear pain, sinus and BARRISO off and on x 1 month Reason Comments Discussion Menopause concerns Reason Comments Patient Update Reason Comments Pelvic Pain Reason Comments Pelvic Pain Specialty Diagnoses / Procedures Referred By Jose lyle Referred To Contact Diagnoses Chronic pelvic pain in female Procedures CONSULT TO [facility] PELVIC PAIN OFFICE/OUTPATIENT [facility] MDM 60 MINUTES Lise Avila APRN.SPORTS ADMINISTRATOR [address] [place] [address] Referral ID Status Reason Start Date Expiration Date V isits Requested Visits Authorized [id number] Closed PCP Requested Referral Auto-Generated Referral 09/03/2023 09/02/2024 1 1 Care Teams (unrecognized sec tion and content) Software Development Manager Relationship Specialty Start Date End Date Latoya Maldonado MD [address] [place] [address] PCP - General Family Medicine 05/10/22 Software Development Manager Relationship Specialty Start Date End Date Latoya Maldonado MD [address] [place] [address] PCP - General Family Medicine 05/10/22 Software Development Manager Relationship Specialty Start Date End Date Latoya Maldonado MD [address] [place] [address] PCP - General Family Medicine 05/10/22 Software Development Manager Relationship Specialty Start Date End Date Latoya Maldonado MD [address] [place] [address] PCP - General Family Medicine 05/10/22 Software Development Manager Relationship Specialty Start Date End Date Latoya Maldonado MD [address] [place] [address] PCP - General Family Medicine 05/10/22 Software Development Manager Relationship Specialty Start Date End Date Latoya Maldonado MD [address] [place] [address] PCP - General Family Medicine 05/10/22 Software Development Manager Relationship Specialty Start Date End Date Latoya Maldonado MD [address] [place] [address] PCP - General Family Medicine 05/10/22 Software Development Manager Relationship Specialty Start Date End Date Latoya Maldonado MD [address] [place] [address] PCP - General Family Medicine 05/10/22 INFORMATION SOURCE (unrecogn ized section and content) FOR RECORDS PERTAINING TO PATIENTS WHO ARE OR HAVE BEEN ENROLLED IN A CHEMICAL DEPENDENCY/SUBSTANCEABUSE PROGRAM, SOME INFORMATION MAY BE OMITTED. This clinical summary was aggregated from multiple sources. Caution should be exercised in using it in the provision of clinical care. This summary normalizes information from multiple sources, and as a consequence, information in this document may materially change the coding, format and clinical context of patient data. In addition, data may be omitted in some cases. CLINICAL DECISIONS SHOULD BE BASED ON THE PRIMARY CLINICAL RECORDS. [employer] [facility]. provides no warranty or guarantee of the accuracy or completeness of information in this document.
== END | disposition home or self-care (01) ==
LOC: OPBI 15:44
PROVIDERS: PCP Family Medicine; Visit Provider Nurse Practitioner Women's Health
DX: Z12.31 Encounter for screening mammogram for malignant neoplasm of breast (principal); Z80.3 Family history of malignant neoplasm of breast
CPT/HCPCS: 77063; 77067